=== PATIENT | male | born 1990 | race Caucasian/White ===

== ENCOUNTER 2017-07-15 12:36 | Emergency (ER) | payer MEDICAID ==
--- NOTE | 2017-07-15 13:43 | EDPHY ---
H & P Time Seen by Provider: 07/15/17 13:05 HPI/ROS: HPI History of depression, out of Zoloft. 27-year-old male on foot. This patient reports that he was recently in skilled nursing. He reports he has been on Zoloft for depression since last February. He reports that he takes 100 mg a day. He reports that he has been out of this medication for about a week. He is asking for a prescription refill. He reports that he called [facility] but stated that he could not get in to see them for 3 months. He denies being suicidal. No homicidal ideations. No other complaints. ROS: Constitutional: No fever, no chills. No weakness. Eyes: No discharge. No changes in vision. ENT: No sore throat. No nasal congestion or rhinorrhea. Respiratory: No cough. No shortness of breath. Cardiac: No chest pain, no palpitations. Gastrointestinal: No abdominal pain, no vomiting, no diarrhea. Genitourinary: No hematuria. No dysuria or increased frequency with urination. Musculoskeletal: No back pain. No neck pain. No myalgias or arthralgias. Skin: No rashes. Neurological: No headache. No focal weakness or altered sensation. Past medical history: Depression. As above. Social history: Smoker. No alcohol. No IV drugs or street drugs. As above. Physical Exam: General Appearance: Alert, no distress. This patient is responding to questions appropriately and in full sentences. This patient appears well- hydrated and well-nourished. Eyes: Pupils equal and round no pallor or injection. No lid edema, erythema or injection. Respiratory: There are no retractions, lungs are clear to auscultation with good air movement bilaterally. Cardiovascular: Regular rate and rhythm. No murmur. Neurological: Motor sensory function is grossly intact. Cranial nerves are normal. Gait is normal. Skin: Warm and dry, no rashes. Musculoskeletal: Neck is supple and nontender. Extremities are symmetrical. All joints range without pain or impingement. Psychiatric: No agitation. No depression. Database: EKG: Imaging: Procedures: Emergency department course: Vital signs reviewed and are normal. I explained to the patient that I would write him a prescription for Zoloft, 100 mg daily for 2 weeks. Will have this filled through our assistance program. Her case folder, Anna, will see the patient and arranged for him to be followed up by [facility] so he can get this medication prescription refilled and receive ongoing management of his depression. The patient endorses this plan. He feels comfortable going home. Follow-up and return to emergency department precautions reviewed with him in detail. All of his questions were answered. He was discharged in good condition. Differential Diagnosis: The differential diagnosis on this patient includes but is not limited to depression, out of Zoloft. Homicidal ideations, suicidal ideations unlikely. This represents a partial list of diagnoses considered. These considerations are based on history, physical exam, past history, reassessment and diagnostic testing. Smoking Status: Current some day smoker Constitutional: Initial Vital Signs Temperature (C) 37.2 C 07/15/17 12:57 Heart Rate 82 07/15/17 12:57 Respiratory Rate 16 07/15/17 12:57 Blood Pressure 116/80 07/15/17 12:57 O2 Sat (%) 96 07/15/17 12:57 O2 Delivery Mode Room Air Allergies/Adverse Reactions: No Known Allergies Allergy (Unverified 07/15/17 12:56) Home Medications: Medication Instructions Recorded Sertraline HCl 07/15/17 Sertraline HCl [Zoloft 100mg (*)] 100 mg PO DAILY #14 tab 07/15/17 traZODone 07/15/17 Departure - Departure Disposition: Home, Routine, Self-Care Clinical Impression: Depression, Prescription refill Condition: Good Instructions: Depression (ED), Sertraline (By mouth) Additional Instructions: Read and follow provided instructions. Follow-up with [facility] for re-evaluation in the next week, ongoing management of your depression and refill of your prescription antidepressant medications. Take medication as prescribed. Return to the emergency department for worsening symptoms, worsening depression , suicidal thoughts or other serious concerns. Referrals: [facility],. [Clinic] - As per Instructions Prescriptions: Sertraline HCl [Zoloft 100mg (*)] 100 mg PO DAILY #14 tab
[2017-07-15 13:54] VITALS: BP 113/68
== END 2017-07-15 13:59 | disposition home or self-care (01) ==
DX: Z76.0 Encounter for issue of repeat prescription (principal); F32.9 Major depressive disorder, single episode, unspecified; F17.200 Nicotine dependence, unspecified, uncomplicated

== ENCOUNTER 2017-07-24 13:59 | Emergency (ER) | payer MEDICAID ==
[2017-07-24 14:09] VITALS: BP 138/81
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
== END 2017-07-24 14:40 | disposition home or self-care (01) ==
DX: F32.9 Major depressive disorder, single episode, unspecified (principal); F17.200 Nicotine dependence, unspecified, uncomplicated

== ENCOUNTER 2017-09-17 06:24 | Emergency (ER) | payer MEDICAID, OTHER ==
--- NOTE | 2017-09-17 06:29 | EDPHY ---
H & P Time Seen by Provider: 09/17/17 06:29 HPI/ROS: HPI CHIEF COMPLAINT: Medication refill HISTORY OF PRESENT ILLNESS: Patient is a 27-year-old male, history of depression and insomnia takes Zoloft 150 mg as well as trazodone 300 mg nightly. He was just released from [facility]-way he has been out of his medications for 8 days. He does not have a local primary care doctor. He is requesting medication refill. Denies any focal complaints this morning. Patient denies wanting to kill anybody or hurt himself. Denies SI or HI. Past Medical History: Depression and anxiety and insomnia Past Surgical History: No recent surgery Social History: Denies daily use drugs alcohol tobacco. Family History: Noncontributory ROS REVIEW OF SYSTEMS: A comprehensive 10 point review of systems is otherwise negative aside from elements mentioned in the history of present illness. Exam Constitutional triage nursing summary reviewed, vital signs reviewed, awake/ alert. Eyes normal conjunctivae and sclera, EOMI, PERRLA. HENT normal inspection, atraumatic, moist mucus membranes, no epistaxis, neck supple/ no meningismus, no raccoon eyes. Respiratory clear to auscultation bilaterally, normal breath sounds, no respiratory distress, no wheezing. Cardiovascular rate normal, regular rhythm, no murmur, no edema, distal pulses normal. Gastrointestinal soft, non-tender, no rebound, no guarding, normal bowel sounds, no distension, no pulsatile mass. Genitourinary no CVA tenderness. Musculoskeletal no midline vertebral tenderness, full range of motion, no calf swelling, no tenderness of extremities, no meningismus, good pulses, neurovascularly intact. Skin pink, warm, & dry, no rash, skin atraumatic. Neurologic awake, alert and oriented x 3, AAOx3, moves all 4 extremities equally, motor intact, sensory intact, CN II-XII intact, normal cerebellar, normal vision, normal speech. Psychiatric normal mood/affect. Heme/Lymph/Immune no lymphadenopathy. Differential Diagnosis: Includes but is not limited to depression, anxiety, insomnia, medication refill Medical Decision Making: Plan for this patient will refill his Zoloft, however declined to give him 300 mg trazodone, will give him a limited supply of 100 mg trazodone for sleep. Additionally recommend he follows up with [facility]. Source: Patient - Medical/Surgical History Hx Asthma: No Hx Chronic Respiratory Disease: No Hx Diabetes: No Hx Cardiac Disease: No Hx Renal Disease: No Hx Cirrhosis: No Hx Alcoholism: No Hx HIV/AIDS: No Hx Splenectomy or Spleen Trauma: No Other PMH: depression - Social History Smoking Status: Current some day smoker Constitutional: Initial Vital Signs Temperature (C) 36.6 C 09/17/17 06:28 Heart Rate 85 09/17/17 06:28 Respiratory Rate 16 09/17/17 06:28 Blood Pressure 132/89 H 09/17/17 06:28 O2 Sat (%) 95 09/17/17 06:28 O2 Delivery Mode Room Air Allergies/Adverse Reactions: No Known Allergies Allergy (Verified 07/24/17 14:05) Home Medications: Medication Instructions Recorded traZODone 07/15/17 Sertraline HCl [Zoloft 100mg (*)] 100 mg PO DAILY #30 tab 07/24/17 Zoloft 100mg (*) 07/24/17 traZODone HCL [Trazodone HCl] 300 mg PO HS #30 tablet 07/24/17 Sertraline HCl [Zoloft 100mg (*)] 100 mg PO DAILY #30 tab 09/17/17 traZODone [traZODONE 50MG (*)] 50 mg PO HS #30 tab 09/17/17 Departure - Departure Disposition: Home, Routine, Self-Care Clinical Impression: Medication refill Condition: Good Instructions: Medicine Refill (ED) Referrals: NONE *[facility]IMARY [facility] P,. [Primary Care Provider] - As per Instructions [facility],. [Clinic] - As per Instructions Prescriptions: Sertraline HCl [Zoloft 100mg (*)] 100 mg PO DAILY #30 tab traZODone [traZODONE 50MG (*)] 50 mg PO HS #30 tab
[2017-09-17 06:33] VITALS: BP 132/89
== END 2017-09-17 06:53 | disposition home or self-care (01) ==
DX: Z76.0 Encounter for issue of repeat prescription (principal); F17.200 Nicotine dependence, unspecified, uncomplicated

== ENCOUNTER 2017-09-27 14:33 | Emergency (ER) | payer MEDICAID, OTHER ==
[2017-09-27 14:41] VITALS: BP 130/87
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
--- NOTE | 2017-09-27 17:39 | ASDISCHSUM ---
Discharge Information Plan Status:Outpatient Psych Referrals Medically Cleared to Leave: Discharge Date:09/27/2017 03:24 PM CM D/C Disposition:Other Psych, Not Steve ADT D/C Disposition:Home, Routine, Self-Care Projected Discharge Date:09/27/2017 03:24 PM Transportation at D/C:None or Unknown Discharge Delay Reason: Follow-Up Date:09/27/2017 03:24 PM Discharge Slot: Final Diagnosis: Placement Information Patient Contact Information Contact Name:BERTSHUBHAM Relationship: Address: Home Phone: Work Phone: City: Alternate Phone: State/Zip Code: Email: Financial Information Financial Class:Medicaid Primary Plan Desc:[employer] Primary Plan Number:[id number] Secondary Plan Desc: Secondary Plan Number: Assessment Information Intervention Information
== END 2017-09-27 15:24 | disposition home or self-care (01) ==
DX: Z76.0 Encounter for issue of repeat prescription (principal); F32.9 Major depressive disorder, single episode, unspecified; F17.200 Nicotine dependence, unspecified, uncomplicated